=== PATIENT | female | born 1965 | race Caucasian/White ===

== ENCOUNTER → 2016-11-07 | Outpatient (CLI) | payer MEDICARE ==
--- NOTE | 2016-11-07 20:43 | MR ---
MRI cervical, thoracic, lumbar spine without contrast HISTORY: Neck pain, back pain Multiplanar multisequence imaging obtained through the cervical thoracic and lumbar spine No comparisons Cervical spine MRI: There is multilevel spondylosis. Cervical vertebral bodies show preserved height and alignment. There is multilevel loss of disc height with intervertebral loss of disc signal. Endpl ate discogenic marrow signal changes are present. C2-3: There is some facet arthropathy, no significant central stenosis or disc herniation, no foramin al encroachment. C3-4: Mild right-sided foraminal encroachment. No disc herniation or central stenosis C4-5: There is a central posterior broad-based disc bulge causing anterior mass effect on the thecal sac, bilateral foraminal encroachment is present left greater than right. Only mild central stenosis. C5-6: Moderate central stenosis is present. Right posterior paracentral extension of endplate disc co mplex causes anterolateral mass effect on the thecal sac, there is foraminal encroachment by greater than left due to uncovertebral joint hypertrophy facet arthropathy. C6-7: Central posterior disc herniation causes contact with the anterior cervical cord. No significan t foraminal encroachment or central stenosis C7-T1: Within normal limits IMPRESSION: There is motion on the exam. Cervical cord signal thought to be normal. Multilevel degene rative disc disease and foraminal encroachment. Thoracic spine MRI: There is a dextroscoliosis centered at the midthoracic spine. Motion is present o n the exam. There is no significant foraminal encroachment or significant central canal stenosis. Fac et arthropathy changes are present at the mid and lower thoracic spine causing some minimal posterior lateral mass effect on the thecal sac. No sizable disc herniation. Thoracic vertebral bodies show pr eserved height and marrow signal. Disc spaces are relatively maintained. IMPRESSION: Scoliosis. Motion on the exam may limit evaluation. Lumbar spine MRI: Abdominal aorta is somewhat ectatic measuring approximately 3 cm. Lumbar vertebral bodies show preserved height and alignment. There is multilevel spondylosis, there is endplate discog enic marrow signal change. Loss of disc height and signal present L4-5, minimal endplate marrow signa l changes present. No significant foraminal encroachment or central canal stenosis. L5-S1: Broad-based posterior disc bulge causes mild anterior mass effect on the thecal sac. Increased signal at the posterior aspect of the disc compatible with annular tear. L4-5: Posterior broad-based disc bulge causes mild anterior mass effect on the thecal sac. There is s ome facet arthropathy with hypertrophy of the ligamentum flavum. L3-4: Some facet arthropathy is mild. No significant disc herniation L2-3: Unremarkable L1-2: Within normal limits IMPRESSION: Aortic ectasia. Degenerative disc disease and facet arthropathy.
== END ==
LOC: RADMRIMAIN 17:30
PROVIDERS: ATTEND Nurse Practitioner Acute Care
DX: M54.2 Cervicalgia (principal); M54.5 Low back pain; M54.6 Pain in thoracic spine; M41.9 Scoliosis, unspecified; M50.221 Other cervical disc displacement at C4-C5 level; M46.90 Unspecified inflammatory spondylopathy, site unspecified
CPT/HCPCS: 72141; 72146; 72148

== ENCOUNTER → 2017-05-15 | Outpatient (CLI) | payer MEDICARE ==
[2017-05-15 16:35] LABS: Blood Urea Nitrogen 25 mg/dL (7-17); Non-African American GFR(MDRD) 52 (>60 ml/min/1.73 sqM)
--- NOTE | 2017-05-15 18:02 | MR ---
MRI BRAIN WITH CONTRAST CLINICAL HISTORY: R90.82 White matter changes TECHNIQUE: Multiplanar, multisequence imaging of the brain and brainstem is performed without and wit h IV contrast Gadavist 7 ml is administered intravenously. Demyelinating disease protocol with additional Sagittal Flair sequen ce performed. Comparison: April 10, 2016 FINDINGS: T2 Lesions Present : Yes Approximate Number of Lesions: Less than 5 Locations Identified : Deep white matter location. Size of Largest Lesion(s): Up to 3 mm. Enhancing Lesion(s) Present: None Change from Prior: Stable Diffusion weighted images demonstrate no evidence of a recent infarct or other diffusion abnormality. There is no worrisome extra-axial fluid collection. Again noted is the remote left MCA territory he morrhagic infarct with hemosiderin deposition and encephalomalacia. There is evidence of prior cranio alia with extra-axial dilatation of the left lateral ventricle. The craniocervical junction appears within normal limits. Post contrast images demonstrate no abnorm al enhancement. The dural venous sinuses appear patent. The visualized sinuses are clear and the genesis bes are intact. IMPRESSION: 1. Stable remote insult left middle cerebral artery territory. 2. Stable Probable chronic small vessel ischemic change.
== END | disposition home or self-care (01) ==
LOC: RADMRIMAIN 15:59
PROVIDERS: ATTEND Nurse Practitioner Acute Care
DX: R90.82 White matter disease, unspecified (principal); I71.4 Abdominal aortic aneurysm, without rupture
CPT/HCPCS: 82565; 84520; 70553; 36415; A9581

== ENCOUNTER → 2018-06-03 | Outpatient (CLI) | payer MEDICARE ==
[2018-06-03 15:24] LABS: Blood Urea Nitrogen 15 mg/dL (7-17)
--- NOTE | 2018-06-04 08:28 | MR ---
EXAMINATION TYPE: MR brain wo/w con DATE OF EXAM: 06/03/2018 COMPARISON: 05/15/2017 and 04/10/2016 HISTORY: White matter changes. History of stroke. TECHNIQUE: Multiplanar, multisequence images of the brain and brainstem is performed without and with utilizing 5.5 mL intravenous Gadavist gadolinium contrast. Demyelinating disease protocol with additional Sagi ttal Flair sequence performed. FINDINGS: Postcontrast imaging is extremely limited by patient motion. T2 Lesions Present : Yes Approximate Number of Lesions: Approximately 3 left hemispheric and 1 right hemispheric 3 Locations Identified : Subcortical white matter. Size of Reference Lesion(s): 1. 0.6 cm x 0.6 cm x 0.6 cm on axial image 20 and sagittal image 9 2 0.6 cm x 0.5 cm on axial image 15 within the left frontal lobe. Motion artifact seen on the sagit alissa images this region. Enhancing Lesion(s) Present: No Change from Prior: Stable There is redemonstration of encephalomalacia involving the left insular lobe, frontal lobe and pariet al lobe from a prior left middle cerebral artery infarct with associated ex vacuo dilatation of the l eft lateral ventricle. There is a peripheral rim of hemosiderin deposition with no T1 hyperintensity to suggest acute hemorrhage or hemorrhagic transformation at this time. This appears similar to the p rior exam with respect to the degree of volume loss. Susceptibility artifact is seen along the left f rontal and parietal superficial skin surface. Prior craniotomy changes are seen on the left. There is stenosis and near complete occlusion of the left internal cerebral artery and its transverse portion, cavernous portion and supraclinoid portion. The left middle cerebral arteries also diminuti ve in comparison to the right although the flow void is maintained of the M1 segment. This finding is retrospectively unchanged in the prior. Diffusion weighted images demonstrate no evidence of a recent infarct or other diffusion abnormality. There is no worrisome extra-axial fluid collection. The ventricular system and cisternal spaces ar e normal in size and appearance. The brain volume is age appropriate. Midline structures demonstrate normal morphology. The craniocervical junction appears within normal limits. There is no new suspicious postcontrast enhancement. Stable left dural and subcutaneous tissu e as well as calvarial enhancement is seen along the left frontotemporal region likely from granulati on tissue and prior surgical intervention. The dural venous sinuses appear patent. The visualized si nuses are clear and the globes are intact. IMPRESSION: 1. There is stable enhancement of the left dura, calvarium, and subcutaneous tissues likely from gran ulation tissue from prior surgical intervention. Unchanged sequela of a remote left middle cerebral a rtery infarct with peripheral hemosiderin deposition and expected dilatation of the left lateral vent ricle. No new evidence of current hemorrhagic transformation. 2. No acute infarct or midline shift. Postcontrast images are significantly limited by patient motion . No gross evidence of new suspicious intracranial enhancement. 3. Few stable foci of nonenhancing white matter change, likely from sequela of chronic microangiopath y. 4. Unchanged near complete occlusion of the visualized intracranial portions of the left internal car otid artery and diminutive caliber of the M1 segment of the middle cerebral artery in comparison to t he right.
== END | disposition home or self-care (01) ==
LOC: RADMRIMAIN 14:41
PROVIDERS: ATTEND Nurse Practitioner Acute Care
DX: I65.22 Occlusion and stenosis of left carotid artery (principal); R90.89 Other abnormal findings on diagnostic imaging of central nervous system
CPT/HCPCS: 82565; 84520; 70553; 36415; A9581

== ENCOUNTER → 2018-07-13 | Outpatient (CLI) | payer MEDICARE ==
--- NOTE | 2018-07-13 09:40 | MR ---
EXAMINATION TYPE: MR angio head wo con DATE OF EXAM: 07/13/2018 9:22 AM COMPARISON: NONE HISTORY: Previous stroke. TECHNIQUE: Time of flight images focusing on the [place] were performed without contrast. FINDINGS: Left vertebral artery is dominant. There is an occlusion of the left internal carotid artery. There is evidence of a previous left middl e cerebral artery infarct. There is ex vacuo enlargement of the left lateral ventricle. The anterior cerebral artery on the left is reconstituted via a patent Acom. There is no significant reconstitutio n of the middle cerebral artery on the left. The right MCA is unremarkable. The posterior circulation appears normal. 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
--- NOTE | 2018-07-13 09:53 | MR ---
EXAMINATION TYPE: MR angio neck wo/w con DATE OF EXAM: 07/13/2018 COMPARISON: HISTORY: Previous stroke and surgery TECHNIQUE: Time of flight images focusing on the neck and upper chest were performed utilizing 7.5 mL intravenous Gadavist gadolinium contrast. FINDINGS: The study is markedly compromised by patient motion artifact. There is a normal origin of the great vessels. The left vertebral artery is dominant. There is occlus ion of the left internal carotid artery at its origin. No significant stenosis is seen on the right. IMPRESSION: 1. MARKEDLY SUBOPTIMAL EXAMINATION. 2. OCCLUSION OF THE LEFT INTERNAL CAROTID ARTERY AT ITS ORIGIN.
== END | disposition home or self-care (01) ==
LOC: RADMRIMAIN 08:20
PROVIDERS: ATTEND Nurse Practitioner Acute Care
DX: I65.22 Occlusion and stenosis of left carotid artery (principal); I66.02 Occlusion and stenosis of left middle cerebral artery
CPT/HCPCS: 70544; 70549; A9585

== ENCOUNTER → 2020-03-23 | Outpatient (CLI) | payer MEDICARE ==
[2020-03-23 11:58] LABS: Basophils # (A) 0.1 k/uL (0-0.2); Basophils % (A) 1 %; Eosinophils # (A) 0.1 k/uL (0-0.7); Eosinophils % (A) 1 %; HCT 44.9 % (34.0-46.0); HGB 14.1 gm/dL (11.4-16.0); Lymphocytes # (A) 3.5 k/uL (1.0-4.8); Lymphocytes % (A) 34 %; MCHC 31.3 g/dL (31.0-37.0); Macrocytosis Slight; Mean Platelet Volume 8.4; Monocytes # (A) 0.4 k/uL (0-1.0); Monocytes % (A) 4 %; Neutrophils # (A) 5.9 k/uL (1.3-7.7); Neutrophils % (A) 58 %; Platelet Count 237 k/uL (150-450); RDW 13.5 % (11.5-15.5); WBC 10.3 k/uL (3.8-10.6)
[2020-03-23 20:57] LABS: African American GFR (CKD) 96.2 (60.0-200.0); Albumin 4.5 g/dL (3.80-4.90); Albumin/Globulin Ratio 1.8 (1.60-3.17); Anion Gap 6.2 mmol/L (4.00-12.00); Calcium 9.9 mg/dL (8.7-10.3); Carbon Dioxide 27.8 mmol/L (21.6-31.8); Globulin 2.5 g/dL (1.6-3.3); Potassium 4.7 mmol/L (3.5-5.5); Total Bilirubin 0.3 mg/dL (0.2-1.2)
[2020-03-23 21:05] LABS: T4, Free (Free Thyroxine) 1.2 ng/dL (0.80-1.80)
== END | disposition home or self-care (01) ==
LOC: LABWHC1 10:07
PROVIDERS: ATTEND Nurse Practitioner Acute Care
DX: D64.9 Anemia, unspecified (principal); E55.9 Vitamin D deficiency, unspecified; G35 Multiple sclerosis
CPT/HCPCS: 36415; 80053; 82306; 82607; 84207; 84439; 84443; 84481; 85025

== ENCOUNTER → 2020-10-06 | Outpatient (CLI) | payer MEDICARE ==
--- NOTE | 2020-10-08 11:03 | MM ---
Reason for exam: screening (asymptomatic). Last mammogram was performed 2 years and 4 months ago. Physical Findings: A clinical breast exam by your physician is recommended on an annual basis and results should be correlated with mammographic findings. MG 3D Screening Mammo W/Cad Bilateral CC and MLO view(s) were taken. Prior study comparison: May 30, 2018, mammogram, performed at [facility] [place]. The breast tissue is heterogeneously dense. This may lower the sensitivity of mammography. There is no discrete abnormality. No significant changes when compared with prior studies. ASSESSMENT: Negative, BI-RAD 1 RECOMMENDATION: Routine screening mammogram of both breasts in 1 year.
== END | disposition home or self-care (01) ==
LOC: RADMAMWWP 11:35
PROVIDERS: ATTEND Family Medicine
DX: Z12.31 Encounter for screening mammogram for malignant neoplasm of breast (principal)
CPT/HCPCS: 77063; 77067